=== PATIENT | female | born 1960 | race Caucasian/White ===

== ENCOUNTER → 2018-07-15 10:55 | Outpatient (CLI) | payer OTHER ==
[~2018-07-15 10:55] MED LIST: Atrovent 0.02% (0.5 MG/2.5 ML AMPUL) IH; CARdura PO; COZAAR100 MG; Cozaar PO; LEVAQUIN500 MG PO; POLY119PG PO; SIMVASTATIN20 MG; WELLBUTRIN SR PO; Xopenex 0.63 MG/3 ML SOLUTION IH; ZOCOR PO
== END | disposition home or self-care (01) ==
LOC: LAB 10:55
DX: D68.8 Other specified coagulation defects (principal); M51.06 Intervertebral disc disorders with myelopathy, lumbar region; M54.17 Radiculopathy, lumbosacral region; K59.8 Other specified functional intestinal disorders; Z01.810 Encounter for preprocedural cardiovascular examination

== ENCOUNTER 2021-01-17 08:20 | Outpatient (CLI) | payer OTHER | END 2021-01-17 08:29 | disposition home or self-care (01) | LOC: TOM 08:20 | PROVIDERS: ATTEND Specialist | DX: C34.2 Malignant neoplasm of middle lobe, bronchus or lung (principal); J68.4 Chronic respiratory conditions due to chemicals, gases, fumes and vapors; I70.0 Atherosclerosis of aorta | CPT/HCPCS: 71260; A9575 ==

== ENCOUNTER 2021-01-30 12:21 | Outpatient (CLI) | payer OTHER | END 2021-01-30 12:23 | disposition home or self-care (01) | LOC: NUCLEAR 12:21 | PROVIDERS: ATTEND Specialist | DX: M81.0 Age-related osteoporosis without current pathological fracture (principal) ==

== ENCOUNTER 2021-07-26 07:56 | Emergency (ER) | payer OTHER ==
[~2021-07-26] VITALS: Ht 157.5 cm; Wt 36.3 kg
[2021-07-26] MEDS ORDERED: ATORVASTATIN CA40 MG PO (08:27)
[2021-07-26] MEDS ORDERED: ADULT LOW DOSE81 M1 PO (08:28)
== END 2021-07-26 14:53 | disposition home or self-care (01) ==
LOC: ER 07:56
DX: L29.8 Other pruritus (principal); I16.0 Hypertensive urgency; I10 Essential (primary) hypertension

== ENCOUNTER 2021-11-12 09:27 | Outpatient (CLI) | payer OTHER ==
[~2021-11-12 09:27] MED LIST changes: +ADULT LOW DOSE81 M1 PO; +ATORVASTATIN CA40 MG PO
== END 2021-11-12 09:35 | disposition home or self-care (01) ==
LOC: LAB 09:27
PROVIDERS: ATTEND Specialist
DX: J45.998 Other asthma (principal); E03.8 Other specified hypothyroidism; E78.2 Mixed hyperlipidemia; E11.65 Type 2 diabetes mellitus with hyperglycemia; Z12.11 Encounter for screening for malignant neoplasm of colon; D64.89 Other specified anemias; M32.10 Systemic lupus erythematosus, organ or system involvement unspecified; K75.81 Nonalcoholic steatohepatitis (NASH)

== ENCOUNTER 2021-11-13 15:24 | Outpatient (CLI) | payer OTHER | END 2021-11-13 15:30 | disposition home or self-care (01) | LOC: LAB 15:24 | PROVIDERS: ATTEND Specialist | DX: E03.8 Other specified hypothyroidism (principal); E78.2 Mixed hyperlipidemia; E11.65 Type 2 diabetes mellitus with hyperglycemia; Z12.11 Encounter for screening for malignant neoplasm of colon; J45.998 Other asthma; D64.89 Other specified anemias; M32.10 Systemic lupus erythematosus, organ or system involvement unspecified; K75.81 Nonalcoholic steatohepatitis (NASH) ==

== ENCOUNTER 2021-11-22 13:38 | Emergency (ER) | payer OTHER ==
[~2021-11-22] VITALS: Ht 157.5 cm; Wt 45.4 kg
== END 2021-11-23 12:01 | disposition home or self-care (01) ==
LOC: ER 13:38
DX: J42 Unspecified chronic bronchitis (principal); R06.02 Shortness of breath; R05.9 Cough, unspecified; R07.89 Other chest pain; F17.290 Nicotine dependence, other tobacco product, uncomplicated; Z03.818 Encounter for observation for suspected exposure to other biological agents ruled out

== ENCOUNTER 2022-05-13 09:34 | Emergency (ER) | payer OTHER ==
[~2022-05-13] VITALS: Ht 152.4 cm; Wt 36.3 kg
[2022-05-13] MEDS ORDERED: DILTIAZEM HCL120 MG PO (10:59)
== END 2022-05-13 16:45 | disposition home or self-care (01) ==
LOC: ER 09:34
DX: J44.1 Chronic obstructive pulmonary disease with (acute) exacerbation (principal); Z20.822 Contact with and (suspected) exposure to COVID-19; R06.02 Shortness of breath

== ENCOUNTER → 2022-07-04 08:50 | Outpatient (CLI) | payer OTHER ==
[~2022-07-04 08:50] MED LIST changes: +DILTIAZEM HCL120 MG PO
== END | disposition home or self-care (01) ==
LOC: LAB 08:50
PROVIDERS: ATTEND Specialist
DX: E03.8 Other specified hypothyroidism (principal); N39.9 Disorder of urinary system, unspecified; R19.5 Other fecal abnormalities; D64.89 Other specified anemias; E11.69 Type 2 diabetes mellitus with other specified complication; E11.21 Type 2 diabetes mellitus with diabetic nephropathy; M00.80 Arthritis due to other bacteria, unspecified joint; R07.89 Other chest pain; Z13.220 Encounter for screening for lipoid disorders

== ENCOUNTER 2022-07-09 10:56 | Outpatient (CLI) | payer OTHER | END 2022-07-09 10:57 | disposition home or self-care (01) | LOC: LAB 10:56 | PROVIDERS: ATTEND Specialist | DX: E03.8 Other specified hypothyroidism (principal); M00.80 Arthritis due to other bacteria, unspecified joint; N39.9 Disorder of urinary system, unspecified; Z13.220 Encounter for screening for lipoid disorders; R19.5 Other fecal abnormalities; R07.89 Other chest pain; D64.89 Other specified anemias; E11.21 Type 2 diabetes mellitus with diabetic nephropathy; E11.69 Type 2 diabetes mellitus with other specified complication ==

== ENCOUNTER 2022-07-10 08:24 | Outpatient (CLI) | payer OTHER | END 2022-07-10 08:28 | disposition home or self-care (01) | LOC: TOM 08:24 | PROVIDERS: ATTEND Internal Medicine Pulmonary Disease | DX: J44.9 Chronic obstructive pulmonary disease, unspecified (principal); F17.211 Nicotine dependence, cigarettes, in remission ==

== ENCOUNTER → 2022-10-30 07:54 | Outpatient (CLI) | payer OTHER | END | disposition home or self-care (01) | LOC: LAB 07:54 | PROVIDERS: ATTEND Specialist | DX: E03.8 Other specified hypothyroidism (principal); E11.69 Type 2 diabetes mellitus with other specified complication; N39.9 Disorder of urinary system, unspecified; M00.80 Arthritis due to other bacteria, unspecified joint; Z13.220 Encounter for screening for lipoid disorders; D64.89 Other specified anemias ==

== ENCOUNTER 2023-01-27 08:32 | Outpatient (CLI) | payer OTHER | END 2023-01-27 08:47 | disposition home or self-care (01) | LOC: LAB 08:32 | PROVIDERS: ATTEND Specialist | DX: E03.8 Other specified hypothyroidism (principal); Z13.220 Encounter for screening for lipoid disorders; D64.89 Other specified anemias; N39.9 Disorder of urinary system, unspecified; E11.21 Type 2 diabetes mellitus with diabetic nephropathy; E11.69 Type 2 diabetes mellitus with other specified complication; R19.5 Other fecal abnormalities; J44.9 Chronic obstructive pulmonary disease, unspecified ==

== ENCOUNTER 2023-04-28 09:50 | Outpatient (CLI) | payer OTHER | END 2023-04-28 09:52 | disposition home or self-care (01) | LOC: LAB 09:50 | PROVIDERS: ATTEND Specialist | DX: N39.9 Disorder of urinary system, unspecified (principal); E03.8 Other specified hypothyroidism; R19.5 Other fecal abnormalities; D64.89 Other specified anemias; E11.69 Type 2 diabetes mellitus with other specified complication; E11.21 Type 2 diabetes mellitus with diabetic nephropathy; Z13.220 Encounter for screening for lipoid disorders ==

== ENCOUNTER 2023-05-01 11:50 | Outpatient (CLI) | payer OTHER | END 2023-05-01 14:12 | disposition home or self-care (01) | LOC: LAB 11:50 | PROVIDERS: ATTEND Specialist | DX: N39.9 Disorder of urinary system, unspecified (principal); E03.8 Other specified hypothyroidism; R19.5 Other fecal abnormalities; D64.89 Other specified anemias; E11.69 Type 2 diabetes mellitus with other specified complication; E11.21 Type 2 diabetes mellitus with diabetic nephropathy; Z13.220 Encounter for screening for lipoid disorders ==

== ENCOUNTER 2023-06-12 09:09 | Inpatient (IN) | payer OTHER ==
[~2023-06-12] VITALS: Ht 152.4 cm; Wt 68.0 kg
[2023-06-12] MEDS ORDERED: ZETIA10 MG PO (09:24)
[2023-06-12] MEDS ORDERED: AZOR 10-20 MG1 EACH PO (09:25)
[2023-06-12] MEDS ORDERED: RAYOS1 MG (09:26)
[2023-06-12] MEDS ORDERED: IRBESARTAN150 MG PO (09:26)
[2023-06-12] MEDS ORDERED: CRESTOR40 MG PO (09:27)
[2023-06-19] MEDS ORDERED: AMLODIPINE BESY10 MG (15:58)
[2023-06-19] MEDS ORDERED: IRBESARTAN-HCT1 EACH (15:58)
== END 2023-06-27 18:04 | disposition home or self-care (01) | DRG 208 ==
LOC: ER 09:09 → ICU-2 15:59 → ICU 06-16 13:52 → MEDI 06-20 21:55
PROVIDERS: Emergency Medicine; Internal Medicine; ADMIT Specialist; ATTEND Specialist
PROC: B24BZZZ Ultrasonography of Heart with Aorta (ICD-10-PCS; 2023-06-13)
PROC: 5A1945Z Respiratory Ventilation, 24-96 Consecutive Hours (ICD-10-PCS; principal; 2023-06-14)
PROC: 5A09457 Assistance with Respiratory Ventilation, 24-96 Consecutive Hours, Continuous Positive Airway Pressure (ICD-10-PCS; 2023-06-14)
PROC: 0BH17EZ Insertion of Endotracheal Airway into Trachea, Via Natural or Artificial Opening (ICD-10-PCS; 2023-06-14)
PROC: 02HV33Z Insertion of Infusion Device into Superior Vena Cava, Percutaneous Approach (ICD-10-PCS; 2023-06-15)
PROC: 4A12X4Z Monitoring of Cardiac Electrical Activity, External Approach (ICD-10-PCS; 2023-06-21)
DX: J44.1 Chronic obstructive pulmonary disease with (acute) exacerbation (principal); I21.A1 Myocardial infarction type 2; J15.0 Pneumonia due to Klebsiella pneumoniae; J96.01 Acute respiratory failure with hypoxia; J96.02 Acute respiratory failure with hypercapnia; I27.20 Pulmonary hypertension, unspecified; Z99.81 Dependence on supplemental oxygen; J84.10 Pulmonary fibrosis, unspecified; I12.9 Hypertensive chronic kidney disease with stage 1 through stage 4 chronic kidney disease, or unspecified chronic kidney disease; N18.9 Chronic kidney disease, unspecified; I48.91 Unspecified atrial fibrillation; Z20.822 Contact with and (suspected) exposure to COVID-19; F17.200 Nicotine dependence, unspecified, uncomplicated

== ENCOUNTER 2023-08-10 18:49 | Inpatient (IN) | payer OTHER ==
[~2023-08-10] VITALS: Ht 157.5 cm; Wt 33.6 kg
[~2023-08-10 18:49] MED LIST changes: +AMLODIPINE BESY10 MG; +AZOR 10-20 MG1 EACH PO; +CRESTOR40 MG PO; +IRBESARTAN-HCT1 EACH; +IRBESARTAN150 MG PO; +NAPROXEN500 MG PO; +RAYOS1 MG; +ZETIA10 MG PO; +ZITHROMAX TRI-500 MG PO
[2023-08-10 19:41] LABS: HEMATOCRIT 40.2 % (36.0-45.00); HEMOGLOBIN 13.4 g/dL (12.0-15.00); MEAN CELL VOLUME 84.5 fL (80.00-100.00); MEAN CORPUSCULAR HEMOGLOBIN 28.1 pg (27.00-32.0); MEAN CORPUSCULAR HGB CONC 33.2 g/dl (32.0-36.0); PLATELET COUNT 256 K/uL (150-450); RED BLOOD COUNT 4.76 M/uL (4.00-6.00); RED CELL DISTRIBUTION WIDTH 16.3 % (11.5-14.5)
[2023-08-10 19:42] LABS: ABG PH 7.437 (7.35-7.45); ABG PO2 65.5 mmHg (80-100); ABG pCO2 28.8 mmHg (35-45); BASE EXCESS -3.7 mmol/l; SaO2 93.1 %; Tco2 19.9 mmol/l
[2023-08-10 20:04] LABS: allen test SATISFACTORY; o2 21 %; puncture site RADIAL LEFT
[2023-08-10 20:22] LABS: CALCIUM 9.5 mg/dL (8.5-10.1); CKMB 1.5 NG/ML (0.5-3.6); CREATININE SERUM 0.75 mg/dL (0.55-1.02); GFR 78.3; POTASSIUM 5.04 mEq/L (3.5-5.1)
[2023-08-11 11:47] LABS: PH,URINE 5.5 (5.0-8.0); URINE APPEARANCE Turbid; URINE BILIRRUBIN Negative (NEGATIVE); URINE COLOR Yellow; URINE GLUCOSE Negative (NEGATIVE); URINE LEUKOCYTE Moderate; URINE NITRATE Negative; URINE PROTEIN Trace (NEGATIVE); URINE UROBILINOGEN 0.2 E.U./dl
[2023-08-11 11:48] LABS: URINE BACTERIA 2310.7 uL (0.0-1933); URINE EPITHELIAL CELLS 157.3 uL (0.0-38.8); URINE RBC 48.5 uL (0.0-20.8); URINE WBC 118.4 uL (0.0-23.2)
[2023-08-11 12:28] LABS: URINE BLOOD TRACES
[2023-08-11 12:29] LABS: URINE CRYSTALS MODERATE /HPF
[2023-08-11 21:07] LABS: ABG PH 7.423 (7.35-7.45); ABG PO2 93.2 mmHg (80-100); ABG pCO2 35.3 mmHg (35-45)
[2023-08-11 21:08] LABS: BASE EXCESS -1.3 mmol/l; BICARBONATE 22.5 mmol/l (23-25); Tco2 23.6 mmol/l; o2 32 %
[2023-08-11 21:09] LABS: allen test SATISFACTORY; puncture site RADIAL RIGHT
[2023-08-11 21:10] LABS: SaO2 97.4 %
[2023-08-11 21:29] LABS: D DIMER 0.61 MG/L; INR 1.14; PARTIAL THROMBOPLASTIN TIME 25.8 SECONDS (22.0-34.0); PROTHROMBIN TIME 11.9 SECONDS (9.0-11.5)
[2023-08-14 23:24] LABS: ABG PO2 62.2 mmHg (80-100); ABG pCO2 46.2 mmHg (35-45); BASE EXCESS 3.2 mmol/l
[2023-08-14 23:25] LABS: BICARBONATE 28.6 mmol/l (23-25); allen test SATISFACTORY; o2 35 %; puncture site RADIAL RIGHT
[2023-08-14 23:27] LABS: SaO2 91.9 %
[2023-08-15 07:22] LABS: HEMATOCRIT 34.6 % (36.0-45.00); HEMOGLOBIN 11.3 g/dL (12.0-15.00); MEAN CORPUSCULAR HEMOGLOBIN 27.7 pg (27.00-32.0); MEAN CORPUSCULAR HGB CONC 32.6 g/dl (32.0-36.0); PLATELET COUNT 216 K/uL (150-450); RED BLOOD COUNT 4.07 M/uL (4.00-6.00); RED CELL DISTRIBUTION WIDTH 15.8 % (11.5-14.5)
[2023-08-15 07:32] LABS: ALBUMIN 3.4 gm/dL (3.4-5.0); ALKALINE PHOSPHATASE 58 U/L (50-136); ALT/SGPT 21 U/L (12-78); ANION GAP 6 (10.0-20.0); AST/SGOT 24 U/L (15-37); BILIRUBIN TOTAL 0.32 mg/dL (0.3-1.2); BLOOD UREA NITROGEN 18 mg/dL (7-18); BUN CREA RATIO 39 (7.0-25.0); CALCIUM 8.7 mg/dL (8.5-10.1); CARBON DIOXIDE 34 mEq/L (21-32); CHLORIDE 108 mmol/L (98-107); CREATININE SERUM 0.46 mg/dL (0.55-1.02); GFR 137.64; GLOBULINA 2.7 G/DL (2.4-3.5); GLUCOSE FASTING 141 mg/dL (65-100); OSMOLALITY SERUM 291 MOSM/KG (275-295); PHOSPHOROUS 3.5 mg/dL (2.5-4.9); POTASSIUM 3.93 mEq/L (3.5-5.1); SODIUM 144 mmol/L (136-145); TOTAL PROTEIN 6.1 gm/dL (6.4-8.2)
[2023-08-15 07:35] LABS: C-REACTIVE PROTEIN < 0.29 MG/DL (0.00-0.29)
[2023-08-15 07:46] LABS: URINE APPEARANCE Clear; URINE BILIRRUBIN Negative (NEGATIVE); URINE BLOOD Large; URINE GLUCOSE Negative (NEGATIVE); URINE LEUKOCYTE Negative; URINE NITRATE Negative; URINE PROTEIN Trace (NEGATIVE); URINE UROBILINOGEN 0.2 E.U./dl
[2023-08-15 07:51] LABS: URINE EPITHELIAL CELLS 2.9 uL (0.0-38.8); URINE RBC 2073.6 uL (0.0-20.8); URINE WBC 16.6 uL (0.0-23.2)
[2023-08-15 08:08] LABS: URINE COLOR YELLOW
[2023-08-15 08:55] LABS: ABG PH 7.393 (7.35-7.45); ABG PO2 111.3 mmHg (80-100); ABG pCO2 49.4 mmHg (35-45); BASE EXCESS 3.5 mmol/l; BICARBONATE 29.4 mmol/l (23-25); SaO2 98.3 %
[2023-08-15 09:44] LABS: allen test SATISFACTORY; puncture site RADIAL LEFT
[2023-08-15 09:45] LABS: o2 35 %
[2023-08-15 19:40] LABS: PLEURAL FLUID APPEARANCE CLOUDY
[2023-08-15 19:42] LABS: PLEURAL FLUID COLOR XANTHOCROMIC
[2023-08-15 19:52] LABS: TP PLEURAL FLUID 2.6 g/dl
[2023-08-15 19:58] LABS: MONONUCLEAR 99 %; POLYMORPHONUCLEAR 1 %
[2023-08-16 06:22] LABS: ABG PH 7.462 (7.35-7.45); ABG PO2 109.5 mmHg (80-100); ABG pCO2 44.3 mmHg (35-45); BASE EXCESS 6.2 mmol/l; BICARBONATE 30.9 mmol/l (23-25); SaO2 98.6 %; Tco2 32.3 mmol/l
[2023-08-16 06:24] LABS: allen test SATISFACTORY; puncture site RADIAL RIGHT
[2023-08-16 06:25] LABS: o2 35 %
[2023-08-17 09:20] LABS: ABG PH 7.381 (7.35-7.45); ABG PO2 74.4 mmHg (80-100); ABG pCO2 55.2 mmHg (35-45); BASE EXCESS 5.3 mmol/l; SaO2 94.7 %; Tco2 33.7 mmol/l
[2023-08-17 09:23] LABS: allen test SATISFACTORY; o2 40 %; puncture site RADIAL RIGHT
[2023-08-19 06:49] LABS: ALBUMIN 3.1 gm/dL (3.4-5.0); BILIRUBIN TOTAL 0.43 mg/dL (0.3-1.2); CALCIUM 8.3 mg/dL (8.5-10.1); CREATININE SERUM 0.36 mg/dL (0.55-1.02); GFR 182.64; GLOBULINA 2.6 G/DL (2.4-3.5); TOTAL PROTEIN 5.7 gm/dL (6.4-8.2)
[2023-08-19 07:31] LABS: HEMATOCRIT 34.7 % (36.0-45.00); HEMOGLOBIN 11.8 g/dL (12.0-15.00); MEAN CELL VOLUME 82.1 fL (80.00-100.00); MEAN CORPUSCULAR HEMOGLOBIN 27.9 pg (27.00-32.0); PLATELET COUNT 242 K/uL (150-450); RED BLOOD COUNT 4.23 M/uL (4.00-6.00); RED CELL DISTRIBUTION WIDTH 15.2 % (11.5-14.5)
[2023-08-19 07:50] LABS: ERYTHROCYTE SEDIMENTATION RATE 2 mm/hr
[2023-08-19 08:34] LABS: C-REACTIVE PROTEIN 0.5 MG/DL (0.00-0.29)
[2023-08-19 08:36] LABS: POTASSIUM 2.48 mEq/L (3.5-5.1)
[2023-08-20 07:46] LABS: POTASSIUM 4.15 mEq/L (3.5-5.1)
[2023-08-21 07:02] LABS: HEMOGLOBIN 12.1 g/dL (12.0-15.00); MEAN CELL VOLUME 83.9 fL (80.00-100.00); MEAN CORPUSCULAR HEMOGLOBIN 27.5 pg (27.00-32.0); MEAN CORPUSCULAR HGB CONC 32.8 g/dl (32.0-36.0); PLATELET COUNT 271 K/uL (150-450); RED BLOOD COUNT 4.41 M/uL (4.00-6.00); RED CELL DISTRIBUTION WIDTH 15.7 % (11.5-14.5)
[2023-08-21 07:15] LABS: BILIRUBIN TOTAL 0.47 mg/dL (0.3-1.2); CALCIUM 8.6 mg/dL (8.5-10.1); CREATININE SERUM 0.3 mg/dL (0.55-1.02); GFR 225.41; GLOBULINA 2.5 G/DL (2.4-3.5); MAGNESIUM 2.1 mg/dL (1.8-2.4); PHOSPHOROUS 4.3 mg/dL (2.5-4.9); POTASSIUM 3.39 mEq/L (3.5-5.1); TOTAL PROTEIN 5.5 gm/dL (6.4-8.2)
[2023-08-21 07:28] LABS: C-REACTIVE PROTEIN 0.68 MG/DL (0.00-0.29)
== END 2023-08-23 14:57 | disposition home or self-care (01) | DRG 190 ==
LOC: ER 18:49 → MEDJ 08-11 19:06
PROVIDERS: Emergency Medicine; General Practice; Internal Medicine; Internal Medicine Infectious Disease; Internal Medicine Pulmonary Disease; Radiology Vascular & Interventional Radiology; ADMIT Specialist; ATTEND Specialist
PROC: BW24ZZZ Computerized Tomography (CT Scan) of Chest and Abdomen (ICD-10-PCS; 2023-08-11)
PROC: 3E0F7GC Introduction of Other Therapeutic Substance into Respiratory Tract, Via Natural or Artificial Opening (ICD-10-PCS; 2023-08-11)
PROC: 4A12X4Z Monitoring of Cardiac Electrical Activity, External Approach (ICD-10-PCS; 2023-08-11)
PROC: 0W9B3ZZ Drainage of Left Pleural Cavity, Percutaneous Approach (ICD-10-PCS; principal; 2023-08-15)
PROC: 02HV33Z Insertion of Infusion Device into Superior Vena Cava, Percutaneous Approach (ICD-10-PCS; 2023-08-19)
PROC: BW24ZZZ Computerized Tomography (CT Scan) of Chest and Abdomen (ICD-10-PCS; 2023-08-20)
PROC: BW28ZZZ Computerized Tomography (CT Scan) of Head (ICD-10-PCS; 2023-08-20)
DX: J44.1 Chronic obstructive pulmonary disease with (acute) exacerbation (principal); J96.90 Respiratory failure, unspecified, unspecified whether with hypoxia or hypercapnia; J90 Pleural effusion, not elsewhere classified; J98.11 Atelectasis; N39.0 Urinary tract infection, site not specified; C34.90 Malignant neoplasm of unspecified part of unspecified bronchus or lung; F17.210 Nicotine dependence, cigarettes, uncomplicated; J84.10 Pulmonary fibrosis, unspecified; B95.2 Enterococcus as the cause of diseases classified elsewhere; J98.4 Other disorders of lung; R59.0 Localized enlarged lymph nodes; J98.01 Acute bronchospasm; Z99.89 Dependence on other enabling machines and devices; R33.9 Retention of urine, unspecified; E78.5 Hyperlipidemia, unspecified; N18.9 Chronic kidney disease, unspecified